=== PATIENT | female | born 1995 | race Caucasian/White ===

== ENCOUNTER 2018-03-14 17:12 | Inpatient (IN) | payer OTHER ==
[~2018-03-14] VITALS: Ht 170.2 cm; Wt 115.5 kg
[2018-03-15 21:12] VITALS: BP 121/90
[2018-03-15] MEDS ORDERED: OXYTOCIN 30U/ 0.9% NaCL 500ML 500 ML IV PRN (21:18)
[2018-03-15] MEDS ORDERED: OXYTOCIN 30U/ 0.9% NaCL 500ML 500 ML IV ONE (21:18)
[2018-03-15] MEDS ORDERED: D5%-LACTATED RINGERS 1,000 ML IV SCH (21:18)
[2018-03-15] MEDS ORDERED: NEWBORN KIT ONE (21:21)
[2018-03-15] MEDS ORDERED: MISOPROSTOL 200 MCG TABLET ONE (21:22)
[2018-03-15] MEDS ORDERED: OXYTOCIN 30U/ 0.9% NaCL 500ML 500 ML ONE (21:22)
[2018-03-15] MEDS ORDERED: LIDOCAINE/PF 1%, 30ML ONE (21:22)
[2018-03-15] MEDS ORDERED: CALCIUM CARBONATE 500 MG TAB.CHEW PO PRN (21:30)
[2018-03-15] MEDS ORDERED: METOCLOPRAMIDE 5 MG/ML, 2ML IVPush PRN (21:30)
[2018-03-15] MEDS ORDERED: TERBUTALINE 1 MG/ML, 1ML SQ PRN (21:30)
[2018-03-15] MEDS ORDERED: FENTANYL PF 100 MCG/2ML IV PRN (21:30)
[2018-03-15] MEDS ORDERED: SODIUM CITRATE/CITRIC ACID 30 ML UDC PO PRN (21:30)
[2018-03-15 21:45] LABS: BASOPHILS # (AUTO) 0.07 x10^3/uL (0-0.1); BASOPHILS % (AUTO) 1 % (0-1); EOSINOPHILS # (AUTO) 0.05 x10^3/uL (0-0.4); EOSINOPHILS % (AUTO) 1 % (1-7); LYMPHOCYTES # (AUTO) 1.88 x10^3/uL (1-3.4); LYMPHOCYTES % (AUTO) 22 % (22-44); MD NO; MEAN CORPUSCULAR HEMOGLOBIN 31.6 pg (27.0-34.8); MEAN CORPUSCULAR HGB CONC 34.8 g/dL (32.4-35.8); MEAN CORPUSCULAR VOLUME 90.7 fL (80-100); MEAN PLATELET VOLUME 9.1 fL (7.4-10.4); MONOCYTES # (AUTO) 0.43 x10^3/uL (0.2-0.8); MONOCYTES % (AUTO) 5 % (2-9); NEUTROPHILS # (AUTO) 6.05 x10^3/uL (1.8-6.8); NEUTROPHILS % (AUTO) 71 % (42-75); PLATELET COUNT 184 x10^3/uL (130-400); RED BLOOD COUNT 4.16 x10^6/uL (3.82-5.3); RED CELL DISTRIBUTION WIDTH 13.2 % (9.6-15.2)
[2018-03-15] MEDS: LACTATED RINGERS 1,000 ML IV SCH (21:45)
[2018-03-15] MEDS ORDERED: FENTANYL/BUPIV./NS/PF 250 ML EPIDCONT SCH (22:50)
[2018-03-15] MEDS ORDERED: LACTATED RINGERS 1,000 ML IVBOLUS PRN (23:00)
[2018-03-16] MEDS: LACTATED RINGERS 1,000 ML IV SCH ×5 (05:02→22:58)
[2018-03-16] MEDS ORDERED: PREN1TAB60 PO (09:33)
[2018-03-16] MEDS ORDERED: FENTANYL PF 100 MCG/2ML ONE ×2 (14:22→18:22)
[2018-03-16] MEDS: FENTANYL PF 100 MCG/2ML IVPush PRN ×2 (14:25→18:23)
[2018-03-16] MEDS ORDERED: ONDANSETRON 2MG/ML, 2ML ONE (16:48)
[2018-03-16] MEDS: ONDANSETRON 2MG/ML, 2ML IVPush PRN (16:51)
[2018-03-16] MEDS ORDERED: FENTANYL/BUPIV./NS/PF 250 ML EPIDCONT SCH ×2 (19:07→19:09)
[2018-03-16] MEDS ORDERED: LACTATED RINGERS 1,000 ML IV SCH ×2 (19:07→19:09)
[2018-03-16] MEDS ORDERED: BUPIVACAINE 0.25% ONE (19:13)
[2018-03-16] MEDS ORDERED: LACTATED RINGERS 1,000 ML IVBOLUS PRN (19:30)
[2018-03-16] MEDS ORDERED: NALOXONE 0.4 MG/ML, 1ML IVPush PRN (19:30)
[2018-03-16] MEDS ORDERED: FENTANYL PF 500 MCG, BUPIVACAINE/PF 0.5%, 30ML 62.5 ML in SODIUM CHLORIDE 0.9% 177.5 ML EPIDCONT SCH (19:30)
[2018-03-16] MEDS ORDERED: EPHEDRINE 50 MG/ML, 1ML IVPush PRN (19:30)
[2018-03-17] MEDS ORDERED: ONDANSETRON 2MG/ML, 2ML ONE (00:49)
[2018-03-17] MEDS: ONDANSETRON 2MG/ML, 2ML IVPush PRN (00:52)
[2018-03-17] MEDS ORDERED: OXYTOCIN 30U/ 0.9% NaCL 500ML 500 ML ONE (03:26)
[2018-03-17] MEDS: OXYTOCIN 30U/ 0.9% NaCL 500ML 500 ML IV SCH ×3 (03:29→23:22)
[2018-03-17] MEDS ORDERED: BISACODYL 10 MG SUPP PR PRN (03:30)
[2018-03-17] MEDS ORDERED: CARBOPROST TROMETHAMINE 250 MCG/ML, 1ML IM PRN (03:30)
[2018-03-17] MEDS ORDERED: ONDANSETRON 2MG/ML, 2ML IV PRN (03:30)
[2018-03-17] MEDS ORDERED: METHYLERGONOVINE 0.2 MG/ML IM PRN (03:30)
[2018-03-17] MEDS ORDERED: MISOPROSTOL 200 MCG TABLET PR PRN (03:30)
[2018-03-17] MEDS ORDERED: OXYcodone/APAP 5/325MG TABLET PO PRN (03:30)
[2018-03-17] MEDS ORDERED: ACETAMINOPHEN 325 MG TABLET PO PRN (03:30)
[2018-03-17] MEDS: IBUPROFEN 600 MG TABLET PO PRN ×2 (05:25→12:44)
[2018-03-17 05:30] VITALS: BP 121/69
[2018-03-17 07:30] VITALS: BP 109/66
[2018-03-17] MEDS: PRENATAL VIT/IRON/FA 1 EACH TABLET PO SCH (08:20)
[2018-03-17] MEDS: DOCUSATE 100 MG CAPSULE PO PRN ×2 (08:20→20:32)
[2018-03-17 12:01] LABS: MEAN CORPUSCULAR HEMOGLOBIN 31.2 pg (27.0-34.8); MEAN CORPUSCULAR HGB CONC 34.4 g/dL (32.4-35.8); MEAN CORPUSCULAR VOLUME 90.6 fL (80-100); PLATELET COUNT 169 x10^3/uL (130-400); RED BLOOD COUNT 3.41 x10^6/uL (3.82-5.3); RED CELL DISTRIBUTION WIDTH 13.6 % (9.6-15.2)
[2018-03-17 12:30] VITALS: BP 107/72
[2018-03-17 12:33] LABS: MD YES
[2018-03-17 12:35] LABS: BANDS%(MANUAL) 3 % (0-7); SEG#(MANUAL) 13.94 x10^3/uL (1.8-6.8); SEGS% (MANUAL) 84 % (42-75)
[2018-03-17 12:36] LABS: <RBC MORPHOLOGY> NORMAL; LYMPH#(MANUAL) 1.66 x10^3/uL (1-3.4); LYMPHS% (MANUAL) 10 % (22-44); MONOS% (MANUAL) 3 % (2-9)
[2018-03-17 12:37] LABS: <PLATELET ESTIMATE> ADEQUATE; <PLT MORPHOLOGY> NORMAL PLT MORPH; TOXIC GRAN 1+
[2018-03-17 16:15] VITALS: BP 95/61
[2018-03-17] MEDS ORDERED: MEASLES,MUMPS&RUBELLA VACC/PF 0.5 ML SQ-VACC ONE (18:30)
[2018-03-17 20:15] VITALS: BP 101/66
[2018-03-18 01:00] VITALS: BP 115/72
[2018-03-18] MEDS: OXYTOCIN 30U/ 0.9% NaCL 500ML 500 ML IV SCH ×2 (02:04→02:05)
[2018-03-18] MEDS: IBUPROFEN 600 MG TABLET PO PRN ×2 (03:47→12:09)
[2018-03-18 07:00] VITALS: BP 114/71
[2018-03-18] MEDS: PRENATAL VIT/IRON/FA 1 EACH TABLET PO SCH (08:56)
[2018-03-18] MEDS: DOCUSATE 100 MG CAPSULE PO PRN (08:56)
[2018-03-18] MEDS ORDERED: DOCU-131 PO (11:30)
[2018-03-18] MEDS ORDERED: IBUP200T49 PO (11:32)
== END 2018-03-18 13:03 | disposition home or self-care (01) | DRG 775 ==
LOC: LDIP 03-15 21:09 → 2NW 03-17 05:20
PROVIDERS: ADMIT Student in an Organized Health Care Education/Training Program; ATTEND Student in an Organized Health Care Education/Training Program
PROC: 10E0XZZ Delivery of Products of Conception, External Approach (ICD-10-PCS; principal; 2018-03-17)
PROC: 0KQM0ZZ Repair Perineum Muscle, Open Approach (ICD-10-PCS; 2018-03-17)
PROC: 3E033VJ Introduction of Other Hormone into Peripheral Vein, Percutaneous Approach (ICD-10-PCS; 2018-03-17)
PROC: 10907ZC Drainage of Amniotic Fluid, Therapeutic from Products of Conception, Via Natural or Artificial Opening (ICD-10-PCS; 2018-03-17)
PROC: 3E0R3BZ Introduction of Anesthetic Agent into Spinal Canal, Percutaneous Approach (ICD-10-PCS; 2018-03-17)
PROC: 00HU33Z Insertion of Infusion Device into Spinal Canal, Percutaneous Approach (ICD-10-PCS; 2018-03-17)
DX: O70.1 Second degree perineal laceration during delivery (principal); Z37.0 Single live birth; Z3A.40 40 weeks gestation of pregnancy; Z23 Encounter for immunization
CPT/HCPCS: 36415; J7121; 85025; 86850; 86900; J2405; J3010; J3490; J2590; J7050; J7120

== ENCOUNTER 2018-09-12 08:44 | Emergency (ER) | payer OTHER ==
[~2018-09-12] VITALS: Ht 170.2 cm; Wt 100.6 kg
[~2018-09-12 08:44] MED LIST: DOCU-131 PO; IBUP200T49 PO; PREN1TAB60 PO
--- NOTE | 2018-09-12 09:23 | NUR ---
First contact with pt. Pt states "I was in the shower this morning and felt dizzy and light headed, I believe I faitned and started convulsing. It last 30 seconds. When I woke up I could only see my husbands figure, I couldn't make out his face and I was still dizzy and seeing stars. I am currently and I take the mini pill control. I have had a sore throat since tuesday and a headache. I am also trying to eat healthier to lose weight. I havn't had a seizure before. I have fainted before about when my baby was one month old." NADN. Seizure precautions in place. NADN. Pt connected to all monitors. at bedside. No needs expressed at this time.
[2018-09-12] MEDS ORDERED: SODIUM CHLORIDE FLUSH 10ML SYR IVF ONE (09:30)
[2018-09-12] MEDS ORDERED: KETOROLAC 30 MG/1 ML IVPush ONE (10:00)
[2018-09-12 10:04] LABS: MICROSCOPIC INDICATED
[2018-09-12] MEDS ORDERED: KETOROLAC 30 MG/1 ML ONE (10:12)
[2018-09-12 10:22] LABS: BASOPHILS % (AUTO) 0 % (0-1); EOSINOPHILS # (AUTO) 0.02 x10^3/uL (0-0.4); EOSINOPHILS % (AUTO) 0 % (1-7); LYMPHOCYTES # (AUTO) 0.78 x10^3/uL (1-3.4); LYMPHOCYTES % (AUTO) 8 % (22-44); MD NO; MEAN CORPUSCULAR HEMOGLOBIN 29.5 pg (27.0-34.8); MEAN CORPUSCULAR HGB CONC 34.3 g/dL (32.4-35.8); MEAN PLATELET VOLUME 8.4 fL (7.4-10.4); MONOCYTES # (AUTO) 0.45 x10^3/uL (0.2-0.8); MONOCYTES % (AUTO) 5 % (2-9); NEUTROPHILS # (AUTO) 8.23 x10^3/uL (1.8-6.8); NEUTROPHILS % (AUTO) 87 % (42-75); PLATELET COUNT 167 x10^3/uL (130-400); RED BLOOD COUNT 4.68 x10^6/uL (3.82-5.3); RED CELL DISTRIBUTION WIDTH 14.7 % (9.6-15.2)
[2018-09-12 10:26] LABS: ALANINE AMINOTRANSFERASE 15 U/L (12-78); ALBUMIN 3.6 g/dL (3.4-5.0); ANION GAP 6 mmol/L (5-15); CALCIUM 8.7 mg/dL (8.5-10.1); CHLORIDE 111 mmol/L (98-107); CREATININE 0.84 mg/dL (0.55-1.02)
[2018-09-12 10:30] LABS: ALKALINE PHOSPHATASE 70 U/L (45-117); BILIRUBIN,TOTAL 1.1 mg/dL (0.2-1.0)
--- NOTE | 2018-09-12 10:47 | NUR ---
Provided medication per [facility]. Pt appreciative. NADN. Family at bedside. No needs requested at this time.
[2018-09-12] MEDS ORDERED: MINIPILL (10:49)
[2018-09-12 11:31] VITALS: BP 100/59
--- NOTE | 2018-09-12 11:35 | NUR ---
Patient given discharge instructions and they have confirmed that they understand the instructions. Patient ambulatory with steady gait. Pt left with all personal belongings, discharge paperwork, and prescriptions.
== END 2018-09-12 11:42 | disposition home or self-care (01) ==
LOC: ED 09:07
DX: R55 Syncope and collapse (principal); N30.00 Acute cystitis without hematuria; B34.9 Viral infection, unspecified; R51 Headache
CPT/HCPCS: 71045; 80053; 81001; 82962; 84703; 85025; 93005; 96374; 99284; J1885